=== PATIENT | female | born 1965 | race Asian ===

== ENCOUNTER 2018-06-07 22:55 | Inpatient (IN) ==
[2018-06-07 23:54] LABS: BASO# 0.03 X1000 (0.0-0.2); BASO% 0.2 % (0.0-0.8); EOS# 0.45 X1000 (0.0-0.7); EOS% 3.3 % (0.0-10.0); HEMATOCRIT 30.1 % (37.0-47.0); HEMOGLOBIN 9.7 g/dL (12.0-16.0); IMM GRAN# 0.04 X1000 (0.0-0.04); IMM GRAN% 0.3 % (0.0-0.5); LYMPH# 1.03 X1000 (1.2-3.4); LYMPH% 7.6 % (20.5-51.1); MCH 28.5 PG (27-31); MCHC 32.2 g/dL (33-37); MCV 88.5 FL (81-99); MONO# 0.88 X1000 (0.11-0.59); MONO% 6.5 % (1.7-9.3); MPV 7.8 FL (7.4-10.4); NEUT% 82.1 % (42.2-75.2); PLT 443 X1000 (130-400); RDW 12.9 % (11.5-14.5); WBC 13.53 X1000 (4.8-10.8)
--- NOTE | 2018-06-08 00:15 | PROVIDER DOCUMENTATION ---
This chart was entered by Diamante Lee Scribe, acting as scribe for Cristina Diaz MD. HPI-General Adult - General Source: patient - History of Present Illness -Gen Adult Nature of Presenting Problems: pt is 53/F presenting to ED w/ c/o urinary retention for the last 3 days, sts that she has gotten out some minimal amounts of urine, also has some dysuria. Pt has stage 4 gastric cancer, is receiving chemo. Denies any n/v. No other symptoms Location of Pain/Injury: reports: generalized (L flank pain) Quality of Pain: reports: aching Severity: reports: moderate Onset/Duration: reports: 3 days ago Timing: reports: still present Context/Activities at Onset: reports: none Modifying Factors: improves with: nothing Associated Symptoms: reports: genitourinary problems Similar Symptoms Previously?: No Recently seen or treated by another doctor?: No <Cristina Diaz - Last Filed: 06/08/18 00:15> <Perez Carreon - Last Filed: 06/08/18 02:48> - General Chief Complaint: Flank Pain Stated Complaint: DIFFICULTY URINATING, FLANK PAIN Time Seen by Provider: 06/07/18 23:06 Allergies/Adverse Reactions: Patient Allergies Allergy/AdvReac Type Severity Reaction Status Date / Time latex Allergy Unknown Verified 11/16/17 20:07 Home Medications: Home Medication List Medication Instructions Recorded Confirmed Last Taken Type Ondansetron [Zofran Odt] 4 mg PO PRN PRN 09/25/17 11/16/17 10/13/17 History Promethazine [Phenergan] 25 mg PO Q4H PRN PRN 09/25/17 11/16/17 2 Days Ago History ~10/11/17 Sucralfate 1 gm PO PRN PRN 09/25/17 11/16/17 10/17/17 07:00 History Scopolamine 1.5 mg/72 Hr Patch 1 each TD Q72H 10/13/17 11/17/17 11/16/17 History [Transderm-Scop] Venlafaxine HCl 25 mg PO QHS 10/13/17 11/16/17 10/16/17 20:00 History Acetaminophen 325 mg PO PRN PRN 10/14/17 11/16/17 Unknown History Alprazolam 0.25 mg PO PRN PRN 10/14/17 11/16/17 Unknown History Nutritional Supplement [Osmolite 50 hour PEG Q1-2H PRN MDD 50ml/hr 10/14/17 11/16/17 10/13/17 09:00 History 1.5 Mina] Sennosides/Docusate Sodium 100 mg PO HS 10/14/17 11/16/17 10/16/17 20:00 History [Docusate Sodium-Senna Tablet] Multivitamin with Minerals 5 ml JT DAILY #1 bottle 10/16/17 11/16/17 10/17/17 07:00 Rx [Eldertonic] Polyethylene Glycol 3350 [Miralax] 17 gm PO BID #20 powder, packet 10/16/17 11/16/17 10/17/17 07:00 Rx Metoclopramide HCl [Reglan] 5 mg PO BID #60 tab 10/22/17 11/16/17 Unknown Rx Oxycodone I.r. [Oxy Ir] 5 mg PO Q4H PRN #30 cap 10/22/17 11/16/17 Unknown Rx Review of Systems - Adult - REVIEW OF SYSTEMS - ADULT Constitutional: reports: no symptoms reported. denies: chills, fever Eyes: reports: no symptoms reported Ears, Nose, Mouth & Throat: reports: no symptoms reported Cardiovascular: reports: no symptoms reported. denies: chest pain Respiratory: denies: cough, shortness of breath, wheezing Gastrointestinal: reports: abdominal pain. denies: nausea, vomiting Genitourinary: reports: dysuria, urinary retention Musculoskeletal: reports: no symptoms reported Integumentary: reports: no symptoms reported Neurological: reports: no symptoms reported. denies: dizziness/vertigo, headache/migraines Endocrine: reports: no symptoms reported Hematologic/Lymphatic: reports: see HPI Allergic/Immunologic: reports: no symptoms reported <Cristina Diaz - Last Filed: 06/08/18 00:15> Past History - Adult - PAST MEDICAL HISTORY-ADULT Review of Records: reports: Old Records Reviewed, Nursing Assessment Review, Medications Reviewed, Social history reviewed & non-contributory. Major Childhood Illnesses: reports: denies history Cardiovascular: reports: denies history Respiratory: reports: denies history Gastrointestinal: reports: cancer (stage 4 with mets) Obstetrical/Gynecological: reports: denies history Genitourinary: reports: denies history Musculoskeletal: reports: denies history Neurological: reports: denies history Psychiatric: reports: denies history Endocrine/Immune: reports: denies history Other Conditions: reports: denies history - PRIOR SURGERIES/PROCEDURES Surgical/Procedure History: reports: other (j tube and port placed) - IMMUNIZATION STATUS Childhood Immunizations: See Nurse Assessment Flu Vaccine: See Nurse Assessment - FAMILY HISTORY Family History: reviewed, not pertinent - SOCIAL HISTORY Provider spent 3-5 mins advising pt. on dangers of tobacco.: Discussed manners to quit use, and f/u contacts for add'l counseling. Substance Use: none/never Alcohol Use Frequency: sober (former use) Living Situation: family <Cristina Diaz - Last Filed: 06/08/18 00:15> Physical Exam-General - PHYSICAL EXAM-ADULT Initial Vital Signs Reviewed: Yes - CONSTITUTIONAL General Appearance: alert, mild distress, other (sleepy, easy to arouse) - EYES Eyes: PERRL/EOMI, pink conjunctivae - HEAD, EARS, NOSE, MOUTH & THROAT HENMT: normocephalic/atraumatic, moist mucous membranes, normal ENT inspection - NECK Neck: non-tender, full range of motion, supple, normal inspection - RESPIRATORY Respiratory: lungs clear, normal breath sounds - CARDIOVASCULAR Cardiovascular: normal peripheral pulses, regular rate, rhythm, no edema - GASTROINTESTINAL (ABDOMEN) Abdominal Exam: normal bowel sounds, soft, other (Peg tube in the left side, yellow discharge from the peg tube site, slightly TTT.) - MUSCULOSKELETAL Back Exam: normal inspection, no CVA tenderness, no vertebral tenderness Extremity: normal range of motion, non-tender, normal gait, normal inspection - SKIN Integumentary: normal color, warm/dry - NEUROLOGIC Neurologic: grossly normal - PSYCHIATRIC Psych/Mental Status: normal thought content, normal thought process, oriented x 3 <Cristina Diaz - Last Filed: 06/08/18 00:15> Progress - PLAN OF CARE/RESULTS Progress/Plan/Lab Results: Vital Signs - 8 hr 06/07/18 22:58 Temperature 97.5 F L Pulse Rate 116 H Respiratory Rate 20 Blood Pressure 119/73 O2 Sat by Pulse Oximetry 94 L Laboratory Results - last 24 hr 06/07/18 23:40 WBC 13.53 H RBC 3.40 L Hgb 9.7 L Hct 30.1 L MCV 88.5 MCH 28.5 MCHC 32.2 L RDW Std Deviation 12.9 Plt Count 443 H MPV 7.8 Immature Gran % (Auto) 0.3 Neut % (Auto) 82.1 H Lymph % (Auto) 7.6 L Carlton % (Auto) 6.5 Eos % (Auto) 3.3 Baso % (Auto) 0.2 Immature Gran # (Auto) 0.04 Neut # (Auto) 11.10 H Lymph # (Auto) 1.03 L Carlton # (Auto) 0.88 H Eos # (Auto) 0.45 Baso # (Auto) 0.03 Orders Category Date Time Status CBC WITH ELECTRONIC DIFF [HEME] Stat Lab 06/07/18 23:40 Completed CMP [COMPREHENSIVE METABOLIC PANEL] [CHEM] Stat Lab 06/07/18 23:40 Received URINALYSIS W/POSS RFLX CULT [URINALYSIS] Stat Lab 06/07/18 23:20 Uncollected Result Diagrams: 06/07/18 23:40 - CHANGE OF SHIFT REPORT (ED Provider) 1 Report Given and Care Transferred to:: Dr. Carreon Time of Transfer: 00:16 Items Pending: Labs (Hx, PE and patient care discussed.) <Cristina Diaz - Last Filed: 06/08/18 00:15> - PLAN OF CARE/RESULTS Progress/Plan/Lab Results: Vital Signs - 8 hr 06/07/18 22:58 06/08/18 01:05 06/08/18 01:31 Temperature 97.5 F L Pulse Rate 116 H 105 H 103 H Respiratory Rate 20 24 17 Blood Pressure 119/73 131/88 122/81 O2 Sat by Pulse Oximetry 94 L 96 92 L 06/08/18 01:37 Temperature Pulse Rate 104 H Respiratory Rate 13 Blood Pressure 122/81 O2 Sat by Pulse Oximetry 93 L Laboratory Results - last 24 hr 06/07/18 06/07/18 06/07/18 23:40 23:40 23:40 WBC 13.53 H RBC 3.40 L Hgb 9.7 L Hct 30.1 L MCV 88.5 MCH 28.5 MCHC 32.2 L RDW Std Deviation 12.9 Plt Count 443 H MPV 7.8 Immature Gran % (Auto) 0.3 Neut % (Auto) 82.1 H Lymph % (Auto) 7.6 L Carlton % (Auto) 6.5 Eos % (Auto) 3.3 Baso % (Auto) 0.2 Immature Gran # (Auto) 0.04 Neut # (Auto) 11.10 H Lymph # (Auto) 1.03 L Carlton # (Auto) 0.88 H Eos # (Auto) 0.45 Baso # (Auto) 0.03 Sodium 135 L Potassium 4.3 Chloride 98 Carbon Dioxide 27 Anion Gap 10 BUN 8 Creatinine 0.3 L Estimated GFR/1.73 m2 > 60 BUN/Creatinine Ratio 27 Glucose 107 H Calculated Osmolality 269 Calcium 8.5 L Total Bilirubin 0.20 AST 13 ALT 11 Alkaline Phosphatase 72 Total Protein 6.3 Albumin 2.9 L Globulin 3.4 Albumin/Globulin Ratio 0.9 Amylase 109 Lipase 31 Plasma Lactate Urine Source Urine Color Urine Turbidity Urine pH Ur Specific [place] Urine Protein Ur Glucose (Stick) Ur Ketones (Stick) Urine Blood Urine Nitrite Urine Bilirubin Urobilinogen Dipstick Urine Leukocytes Urine WBC (Auto) Urine RBC (Auto) U Epithel Cells (Auto) Urine Bacteria (Auto) 06/08/18 06/08/18 00:56 00:56 WBC RBC Hgb Hct MCV MCH MCHC RDW Std Deviation Plt Count MPV Immature Gran % (Auto) Neut % (Auto) Lymph % (Auto) Carlton % (Auto) Eos % (Auto) Baso % (Auto) Immature Gran # (Auto) Neut # (Auto) Lymph # (Auto) Carlton # (Auto) Eos # (Auto) Baso # (Auto) Sodium Potassium Chloride Carbon Dioxide Anion Gap BUN Creatinine Estimated GFR/1.73 m2 BUN/Creatinine Ratio Glucose Calculated Osmolality Calcium Total Bilirubin AST ALT Alkaline Phosphatase Total Protein Albumin Globulin Albumin/Globulin Ratio Amylase Lipase Plasma Lactate 0.7 Urine Source CLEAN CATCH Urine Color YELLOW Urine Turbidity CLEAR Urine pH 6.0 Ur Specific [place] 1.017 Urine Protein TRACE A Ur Glucose (Stick) NEGATIVE Ur Ketones (Stick) NEGATIVE Urine Blood NEGATIVE Urine Nitrite NEGATIVE Urine Bilirubin NEGATIVE Urobilinogen Dipstick NORMAL Urine Leukocytes NEGATIVE Urine WBC (Auto) <10 Urine RBC (Auto) <10 U Epithel Cells (Auto) <10 Urine Bacteria (Auto) NEGATIVE Orders Category Date Time Status CHEST-PORTABLE [RAD] Stat Exams 06/08/18 00:[address] ABDOMEN/PELVIS W/O CONTRAST [CT] Stat Exams 06/08/18 00:56 Taken AMYLASE [CHEM] Stat Lab 06/08/18 00:11 Completed CBC WITH ELECTRONIC DIFF [HEME] Stat Lab 06/07/18 23:40 Completed CMP [COMPREHENSIVE METABOLIC PANEL] [CHEM] Stat Lab 06/07/18 23:40 Completed LACTATE, PLASMA [CHEM] Stat Lab 06/08/18 00:56 Completed LIPASE [CHEM] Stat Lab 06/08/18 00:11 Completed URINALYSIS W/POSS RFLX CULT [URINALYSIS] Stat Lab 06/08/18 00:56 Completed Morphine Med 06/08/18 00:57 Discontinued 4 mg IV NOW ONE Ondansetron [Zofran] Med 06/08/18 00:57 Discontinued 4 mg IM NOW ONE Result Diagrams: 06/07/18 23:40 06/07/18 23:40 <Perez Carreon - Last Filed: 06/08/18 02:48> Departure <Cristina Diaz - Last Filed: 06/08/18 00:15> - Departure Date of Disposition Decision: 06/08/18 Time of Disposition Decision: 02:33 Certified Medical Emergency: Emergent - Critical Care Note This patient required my direct & personal management of CC.: No <Perez Carreon - Last Filed: 06/08/18 02:48> - Departure DIAGNOSIS: Abdominal pain Disposition: ADMITTED INPATIENT 09 Condition: Stable Referrals and Follow-Ups: Jose Manuel Belcher MD [Primary Care Provider] - Attestation - Physician/ MCKENZIE Attestation Patient care was provided by Advanced Practice Provider:: No The physician spent face to face time with patient:: Yes Advanced Practice Provider documentation review:: Supervising physician onsite and consulted in the evaluation and care of this patient. The physician did have a face to face encounter with the patient. <Perez Carreon - Last Filed: 06/08/18 02:48> This chart was documented by the indicated scribe, (Diamante Lee, Scribe) and accurately reflects the services I performed and decisions made by Nolan viera Sarmed A., MD, as attested by the provider's signature.
[2018-06-08 00:29] LABS: AGAP 10; ALB/GLOB RATIO 0.9; ALBUMIN 2.9 g/dL (3.5-5.0); ALKALINE PHOSPHATASE 72 U/L (32-104); BUN 8 mg/dL (8-22); CALCIUM 8.5 mg/dL (8.8-10.2); CHLORIDE 98 mmol/L (98-107); COSMO 269; CREATININE 0.3 mg/dL (0.5-0.9); ESTIMATED GFR > 60; GLUCOSE 107 mg/dL (70-104); GOT 13 U/L (10-30); GPT 11 U/L (10-36); POTASSIUM 4.3 mmol/L (3.5-5.1); SODIUM 135 mmol/L (136-145); TCO2 27 mmol/L (25-35); TOTAL PROTEIN 6.3 g/dL (6.3-8.3)
[2018-06-08 00:41] LABS: AMYLASE 109 U/L (20-200); LIPASE 31 U/L (13-60)
[2018-06-08] MEDS ORDERED: ZOFRAN IM ONE (00:57)
[2018-06-08] MEDS ORDERED: MORPHINE IV ONE ×2 (00:57→03:01)
[2018-06-08 01:04] LABS: URINE SOURCE CLEAN CATCH
[2018-06-08 01:10] LABS: BILIRUBIN URINE NEGATIVE (NEGATIVE); BLOOD URINE NEGATIVE (NEGATIVE); COLOR YELLOW; GLUCOSE URINE NEGATIVE (NEGATIVE); KETONE URINE NEGATIVE (NEGATIVE); LEUKOCYTES URINE NEGATIVE (NEGATIVE); NITRITE URINE NEGATIVE (NEGATIVE); PROTEIN URINE TRACE mg/dL (NEGATIVE); SP GRAVITY URINE 1.017; TURBIDITY URINE CLEAR (CLEAR); UR EPITHELIAL CELLS <10 /HPF (<10); URINE BACTERIA NEGATIVE /HPF; URINE RBC <10 /HPF (<10); URINE WBC <10 /HPF (<10); UROBILINOGEN URINE NORMAL (NORMAL)
[2018-06-08] MEDS ORDERED: COMPAZINE IV ONE (03:01)
[2018-06-08] MEDS ORDERED: NS 1,000 ML IV ONE (03:53)
--- NOTE | 2018-06-08 05:05 | HISTORY AND PHYSICAL ---
PRIMARY CARE PHYSICIAN: Dr. New Manning. CANDY SEPARATOR ENROBING/ONCOLOGIST: Jose Manuel Belcher MD REASON FOR ADMISSION: A 3-day history of worsening intermittent left flank pain. HISTORY OF PRESENT ILLNESS: Ms. Francoise Pickett is an unfortunate 53-year-old [place] woman with stage IV cancer of the stomach. She is currently not receiving any chemotherapy or radiation therapy at this time. She comes in today complaining of 3-day history of decreased urinary output with intermittent left flank sharp pain not radiating anywhere. She said the pain is worse when she tries to urinate and says the pain occurs simultaneously with suprapubic pain. No overt dysuria or hematuria. She does admit today she started complaining of some fever and chills, and has vomited 3 times, yellowish emesis. No altered bowel movements. There has been increasing abdominal girth over the last 1 week, but there is no anterior abdominal pain, no shortness of breath or chest pain. The patient's daughter says that she has a lot of secretions and does not expectorate appropriately and does not protect her airway. No documented cough or shortness of breath. No chest pain. No polyuria or polydipsia. The patient has J tube in place because she has dysphagic and because of progressive tumor infiltration. No focal neurological complaints. REVIEW OF SYSTEMS: Twelve systems review was done. Positive findings per HPI. ALLERGIES: To latex. HOME MEDICATIONS: Have not been reconciled, but the family does report that she was taking several doses of morphine without any relief and that was one of the main reasons why she came in today. SOCIAL HISTORY: She is . Does not smoke, drink, or use illicit drugs. SURGICAL HISTORY: Other than the port and the aforementioned J tube, no surgical history. FAMILY HISTORY: Dad of liver cancer, but that is about it. DATA: White count 13,000, hemoglobin 9, hematocrit 30, platelets 443,000 with 82% neutrophils. Sodium is 135, glucose 107, calcium 8.5, albumin 2.9. Urinalysis shows trace protein. Chest film: Elevated right hemidiaphragm. There appears to be possible left lower lobe consolidation. CT scan of the abdomen showed the following findings: Increased ascites, upper abdominal adenopathy is unchanged, I think possible intraperitoneal metastasis, new mild hydronephrosis which is bilateral, possible acute pancreatitis, new dilation of the distal esophagus, probably suggestive of obstruction at the GE junction, left more than right pleural effusions increased. PHYSICAL EXAMINATION: VITAL SIGNS: Blood pressure is 127/85, heart rate is 102, temperature is 97.5 degrees, 92% on room air. GENERAL: This is a thin middle-aged [place] woman who is in moderate distress from her pain. She is slightly sedated from the pain medication recently administered. She will follow commands and open her eyes. She is alert and oriented to person, place, time, but very weak. She has a sad affect. HEENT: Head is normocephalic, atraumatic. Eyes, LATOSHA, EOMI. She is anicteric and mildly pale. ENT and oropharyngeal exam is only notable for dry oral mucosa. No central cyanosis. NECK: Supple. No JVD or carotid bruit. No thyromegaly. CHEST: Clear to auscultation. Diminished air entry in both lung romano. CARDIOVASCULAR: First and second heart sounds heard. No gallops, murmurs, rubs. Rhythm is regular. ABDOMEN: Distended, soft with a J-tube in the epigastrium. Note skin surrounding entry point is normal. There is tender epigastric pain, but no peritoneal signs. Bowel sounds are hypoactive. The patient has marked left CVA tenderness. RECTAL: Deferred at this time. No mass or organomegaly appreciated. EXTREMITIES: No edema, clubbing or peripheral cyanosis. Pulses distally have decreased volume. Rhythm is regular. NEUROLOGICAL: Grossly intact. No tremors, no myoclonus. SKIN: Intact. No breakdown, lesion, erythema. MUSCULOSKELETAL: Exam is grossly normal. ASSESSMENT: 1. Metastatic stage IV stomach cancer. 2. Aspiration pneumonia. 3. Dehydration. 4. Acute ascites. 5. Obstructive uropathy? Local tumor effect. PLAN: We will treat patient symptomatically with IV analgesia and opioids. Empiric antibiotics for possible aspiration pneumonia. Consult Urology for possible stenting versus nephrostomy tubes. Also order intravenous hydration. Consideration for nutrition supplements via J tube if patient can tolerate. The patient's prognosis does not seem to be looking good and will defer to Dr. Belcher to decide on if the patient will be a candidate for hospice and subsequently comfort care. The patient's tumor has progressed from when I saw her last saw her in October 2017. cc: Olakunle MD Jose Manuel Kiran MD Brian R. James, MD
[2018-06-08] MEDS ORDERED: TYLENOL PO PRN (05:56)
--- NOTE | 2018-06-08 06:02 | Diag Imaging Result Doc PS360 ---
EXAM: CHEST-PORTABLE HISTORY: cp TECHNIQUE: Chest single view COMPARISON: 11/16/2017 FINDINGS: Poor inspiratory effort. There is a small left pleural effusion with basilar atelectasis. There could be underlying infiltrates as well. No change in the right jugular portacatheter. No pneumothorax. No cardiomegaly. IMPRESSION: Development of a left pleural effusion with basilar atelectasis Electronically signed by Krish Newberry 06/08/2018 6:00 AM
[2018-06-08] MEDS: ZOSYN 3.375 GM in NS 50 ML IV SCH ×3 (06:14→18:26)
[2018-06-08] MEDS: MORPHINE IV PRN ×8 (06:16→22:48)
[2018-06-08] MEDS: POTASSIUM CHLORIDE 10 MEQ in NS 1,000 ML IV SCH ×2 (07:46→19:41)
--- NOTE | 2018-06-08 07:46 | Diag Imaging Result Doc PS360 ---
CT ABDOMEN/PELVIS W/O CONTRAST - 06/08/2018 INDICATION: abd pain COMPARISON: 10/18/2017 FINDINGS: There is a trace right and moderate left pleural effusion. Heart size is normal with no pericardial effusion. There are some scattered atelectasis in the lung bases. There is significant ascites increased from prior. There is severe constipation with significant dilation of most of the colon. There is a percutaneous jejunostomy tube in good position. The balloon is inflated. There is significant wall thickening of the gastric antrum similar to prior. There is probably retroperitoneal adenopathy. There is moderate bilateral hydronephrosis. No stones. Urinary bladder is very distended. Uterus and rectum are unremarkable. Bones are intact. IMPRESSION: 1. Very distended urinary bladder with bilateral hydronephrosis. Recommend Dougherty catheter placement and reevaluation with renal and bladder ultrasound. 2. Severe fecal impaction in diffuse dilation of the colon suggesting ileus. 3. Increasing ascites and pleural effusions. 4. Increasing retroperitoneal adenopathy. 5. Severe gastric wall thickening at the antrum. Some fluid dilation of the esophagus may represent gastric outlet obstruction or ileus. This exam was performed using automated exposure control, adjustment of mA or kV according to patient size, and/or use of iterative reconstruction technique Electronically signed by Pedro Mayes 06/08/2018 7:44 AM
--- NOTE | 2018-06-08 07:56 | CONSULTATION ---
DATE OF CONSULTATION: 06/08/2018 CHIEF COMPLAINT: Left flank pain. HISTORY OF PRESENT ILLNESS: Ms. Pickett is a 53-year-old [place] female with a stage IV cancer of her stomach. She is currently not on chemotherapy or radiation therapy. She complains of a 3-day history of decreased urinary output with intermittent left flank pain. She states the pain is worse when she tries to urinate. She also describes having suprapubic tenderness. Denies any hematuria or dysuria. The patient presented to the emergency room overnight where a CT of abdomen and pelvis are performed which showed bilateral mild hydronephrosis and a distended bladder with ascites and constipation present. Her and her family do describe occasional fevers and chills, and she has vomited several times. She states that her abdomen has increased in size recently. Denies any shortness of breath or chest pain. Urology was consulted for her bilateral hydronephrosis which is most prominent on the left side and her left flank pain. ALLERGIES: Latex. MEDICATIONS: 1. Venlafaxine 25 mg. 2. Xanax 0.25 mg. 3. Zofran ODT 4 mg. 4. Phenergan 25 mg p.o. 5. Sucralfate 1 g p.o. 6. MiraLAX 17 g. 7. Oxycodone 5 mg. PAST SURGICAL HISTORY: 1. Port placement 2. A AHSAN tube. PAST MEDICAL HISTORY: Stage IV gastric cancer. FAMILY HISTORY: Father of liver cancer. Denies any malignancies. SOCIAL HISTORY: Denies tobacco, alcohol, or illicit drug use. REVIEW OF SYSTEMS: Twelve-point review of systems performed with all pertinent positives and negative in HPI. PHYSICAL EXAMINATION: Vital Signs: Heart rate 89, blood pressure 119/77, oxygen saturation 92% on room air. General: Thin [place] female with moderate distress due to abdominal discomfort and pain. She follows commands and opens her eyes. She is alert and oriented to person, place, time, and situation. HEENT: Normocephalic, atraumatic. Pupils equal, round, and reactive to light. Mucous membranes moist. EOMI. Neck: Trachea midline. No palpable masses. Respiratory: Good respiratory effort without audible wheezing or rales. Cardiovascular: S1, S2 heart sounds. Regular rate and rhythm. Abdomen: Slightly distended, soft with tenderness to palpation. No evidence of any rebound or guarding. J tube in place. GENITOURINARY: The patient does have some suprapubic tenderness and distention. Evidence of left CVA tenderness. Extremities: Moving all extremities. Neurologic: Gross motor and sensory intact. Skin: No obvious skin breakdown or lesions. LABORATORY: White blood count 13.5, hemoglobin 9.7, hematocrit 30.4, and platelets 443,000. Sodium 135, potassium 4.3, chloride 98, bicarb 27, BUN 8, creatinine 0.3, and glucose 107. Urine with trace protein, negative blood and negative nitrite. Negative leukocytes. IMAGING: CT of abdomen and pelvis reviewed which showed mild bilateral hydronephrosis, more prominent on the left than the right, no obstructing lesions. The patient has a distended bladder, evidence of ascites and fecal constipation. J-tube in place. ASSESSMENT AND PLAN: Ms. Pickett is a 53-year-old with stage IV gastric cancer, who presents in consultation regarding flank pain, most prominent on the left side as well as CT scan evidence of the left hydronephrosis and a distended bladder. The patient has had decreased urinary output with a distended bladder. She has voided several times since being here, but these are all small volumes. I reviewed the imaging with her and her family. Discussed that due to the size of her bladder I think this is likely related to her hydronephrosis. I recommend placement of a urethral catheter to decompress her bladder, and likely would help with her bilateral hydronephrosis and her pain. If the patient has persistent hydronephrosis, we will consider cystoscopy and bilateral retrograde pyelograms and possible stent placement. Would plan to obtain a renal ultrasound in 2 days with Dougherty catheter in placement. The patient seems to have advanced cancer which could be leading to obstruction, but also has significant fecal constipation that could be leading to her urinary retention. Recommend aggressive bowel regiment. The patient's renal function is Cr of 0.3, and her urine looks to be relatively benign. We will continue to monitor. Please call with questions or concerns. cc: Royal Isbell MD [facility] CENTERHiren
[2018-06-08] MEDS: COMPAZINE IV PRN ×3 (10:18→20:37)
[2018-06-08] MEDS ORDERED: FLEET ENEMA PR ONE (11:09)
[2018-06-08] MEDS ORDERED: ANUSOL-HC CREAM PR SCH (11:30)
[2018-06-08] MEDS ORDERED: MIRALAX PO SCH (11:30)
[2018-06-08 12:26] LABS: BASO# 0.01 X1000 (0.0-0.2); BASO% 0.1 % (0.0-0.8); EOS# 0.37 X1000 (0.0-0.7); EOS% 3.1 % (0.0-10.0); HEMATOCRIT 29.4 % (37.0-47.0); HEMOGLOBIN 9.4 g/dL (12.0-16.0); IMM GRAN# 0.02 X1000 (0.0-0.04); IMM GRAN% 0.2 % (0.0-0.5); LYMPH% 9.3 % (20.5-51.1); MCH 28.8 PG (27-31); MCV 90.2 FL (81-99); MONO# 0.69 X1000 (0.11-0.59); MONO% 5.8 % (1.7-9.3); MPV 7.8 FL (7.4-10.4); NEUT% 81.5 % (42.2-75.2); PLT 428 X1000 (130-400); RBC 3.26 XMIL (4.2-5.4); RDW 12.9 % (11.5-14.5); WBC 11.89 X1000 (4.8-10.8)
[2018-06-08 12:46] LABS: AGAP 9; BUN 7 mg/dL (8-22); CALCIUM 8.1 mg/dL (8.8-10.2); CHLORIDE 102 mmol/L (98-107); COSMO 272; CREATININE 0.4 mg/dL (0.5-0.9); ESTIMATED GFR > 60; GLUCOSE 131 mg/dL (70-104); POTASSIUM 4.1 mmol/L (3.5-5.1); SODIUM 136 mmol/L (136-145); TCO2 25 mmol/L (25-35)
--- NOTE | 2018-06-08 13:07 | HEMO/ONC CONSULTATION ---
DATE: 06/08/2018 CHIEF COMPLAINT: We are being consulted for further management of patient's gastric cancer. HISTORY OF PRESENT ILLNESS: Ms. Pickett is a 53-year-old female that presented to the emergency department complaining of urinary retention, increased amounts of pain with urination, and increased amounts of abdominal pain. The patient denies any nausea, vomiting. No diarrhea. She does have some fever and chills. She has vomited about 3 different times. Abdominal pain continued to get worse. Ms. Pickett is well known to us at our clinic where she has been following for her metastatic gastric cancer. The patient was started on 5-FU based chemotherapy on 10/28/2017. The patient had an allergic reaction to oxaliplatin on 03/02/2018, changed to FOLFIRI only on 03/16/2018. Due to patient unable to tolerate chemotherapy, patient has not been treated with any chemotherapy since March of 2018. The patient was last in our office 06/03/2018. At that time, the patient had decided not to have further treatment measures, to keep comfort only. PAST MEDICAL HISTORY: Stage IV gastric cancer, GERD. PAST SURGICAL HISTORY: Port-A-Cath placement and J-tube placement. SOCIAL HISTORY: Previous smoker. No alcohol or substance abuse. FAMILY HISTORY: Positive for liver cancer. ALLERGIES: Allergic to latex. HOME MEDICATIONS: Venlafaxine, Xanax, Zofran, Phenergan, MiraLAX, oxycodone. REVIEW OF SYSTEMS: Negative other than as mentioned in the HPI. PHYSICAL EXAMINATION: Vital Signs: Temperature of 98.0 degrees, heart rate 97, respiratory rate 18, blood pressure 130/80, saturating 98% on room air. General: Patient is awake, lying in bed. No acute distress noted. HEENT: Anicteric. Pupils PERRLA. Mucous membranes appear to be dry. Neck: Supple. Trachea midline. Lymph Node Survey: No palpable lymphadenopathy. Chest: Bilateral breath sounds diminished bilaterally. Cardiovascular: S1, S2. Regular rate and rhythm. Abdomen: Soft, mildly distended. J-tube in place. Tender in the epigastric region. Bowel sounds are hypoactive. Skin: Warm, dry, and intact. Neurologic: Alert and oriented x3. No focal deficits noted. LABORATORY DATA: White blood cell count is 13.53, hemoglobin 9.7, hematocrit 30.1, platelets are 443,000. Potassium 4.3, BUN 8, creatinine 0.3. ASSESSMENT AND PLAN: 1. Stage IV gastric adenocarcinoma: The patient has decided no further treatment at this time, just to keep comfortable. We will continue with those wishes at this time. 2. Aspiration pneumonia: Continue recommendations per primary medical team. 3. Hydronephrosis: Continue recommendations per urology. 4. Dehydration: Continue hydration per primary medical team. Dictated by CANDACE Abel for Jose Manuel Belcher MD Patient seen and examined. As above. Patient known to us for metastatic gastric adenocarcinoma. We have stopped her chemotherapy about a month ago. She is on comfort measures, however so far the daughter and were able to take care of her without the help of hospice. Her condition has declined on a weekly basis. Family has voiced understanding. I have recommended that he get hospice on board. For constipation, we will give her relistor. Continue pain management. Jose Manuel Belcher M.D. cc: CANDACE Abel MD [facility]
--- NOTE | 2018-06-08 13:48 | GASTROENTEROLOGY CONSULTATION ---
DATE: 06/08/2018 PRIMARY CARE DOCTOR: Dr. Belcher. REASON FOR CONSULT: Abdominal distention. Back pain. Metastatic gastric cancer. HISTORY OF PRESENT ILLNESS: Ms. Pickett is 52-year-old female who was admitted on 06/07/2018 for symptoms of worsening left-sided flank pain. She has a history of stage IV stomach cancer. This was diagnosed with Dr. Mathis in 2018. She had a history of constipation. She had a colonoscopy done in 2018, which showed evidence of stercoral ulcer from impaction. During this admission CT scan showed evidence of : 1. Very distended urinary bladder with bilateral hydronephrosis. 2. Severe fecal impaction with diffuse dilation of the colon suggesting ileus. 3. Increasing ascites and pleural effusion. 4. Increasing retroperitoneal adenopathy. 5. Severe gastric wall thickening of the antrum. Some fluid dilation of the esophagus may represent gastric obstruction or ileus. 6. Gastric for further management. The patient has decreased p.o. intake. She moved her bowels once now. She has been fed through the J-tube since last year since the diagnosis. 7. Her main complaint is pain in the back she is getting IV narcotics for management. PAST MEDICAL HISTORY: 1. Stage IV stomach cancer. 2. Constipation. 3. Gastric obstruction. 4. Malnutrition. 5. Urinary retention. PAST SURGICAL HISTORY: 1. Esophagogastroduodenoscopy. 2. Colonoscopy. 3. J.-tube placement. ALLERGIES TO: Latex. SOCIAL HISTORY: She is . Her is very supportive, present at bedside. I also spoke to the daughter at bedside. No history of tobacco, alcohol or illicit drugs. FAMILY HISTORY: Father of liver cancer. MEDICATIONS IN THE HOSPITAL: 1. Fleets enema x1. 2. Tylenol. 3. Morphine. 4. IV normal saline at 125 mL/hour with potassium chloride 10 mg in there. 5. Compazine 10 mg IV every 4 hours. 6. Zosyn. 7. The patient is a clear liquid diet. REVIEW OF SYSTEMS: Denies any fevers, rigors, or chills. Does complain of pain in the back and decreased p.o. intake and constipation. PHYSICAL EXAMINATION: Vital Signs: Temperature 98 degrees, pulse of 85, respiratory rate of 17, blood pressure of 123/72 saturating 94% on room air. Body weight of 90 pounds body mass index of 17.6 kg. General: Thinly built, lying in bed, in no acute distress. HEENT: Pale conjunctiva, no icterus. Neck: Supple. Abdomen: Distended, J-tube in place in the left upper quadrant. There is erythema around the J-tube external bumper. There is also some pus on the gauze. Some soreness in the abdomen noted around the J-tube site. Likely localize feeding tube site infection. Extremities: No cyanosis, clubbing. : She has a Dougherty in place. Neurologic: She is alert, awake, oriented. LABS: Her hemoglobin and hematocrit is 9.4 and 29.4, white count of 11.89 platelet count of 428,000. Sodium of 135, potassium 4.3, chloride 98, bicarb 27, anion gap 10, BUN of 8 creatinine 0.3, glucose of 107 calcium is 8.5, total bilirubin is 0.2, AST 13, ALT 11, alkaline phosphatase 72, total protein is 6.3, albumin of 2.9. Amylase of 109, lipase of 31, lactate of 0.7. Urinalysis showing trace protein. CT scan findings described in HPI. IMPRESSION AND PLAN: 1. Metastatic stage IV stomach cancer being treated by Dr. Belcher. Her last chemotherapy was 1 month ago. Currently she is not on any further planned chemotherapy. Dr. Belcher has been consulted. Will follow up on his recommendations. 2. Gastric outlet obstruction likely secondary to gastric cancer which is likely causing some fluid in the esophagus. This poses her aspiration risk. We have suggested putting NG tube. I spoke to the patient's family at bedside. I have discussed the procedure of putting NG tube with them. They will discuss among themselves and let us know. I have also spoken to the nurse at bedside. 3. Aspiration pneumonia, possible. She has been on Zosyn per the primary care team. 4. Recurrent fecal impaction. We will start her on enemas twice daily for next three days and evaluate the response. Once abdomen is a little softer she may be able to use the J-tube for giving MiraLAX twice daily. 5. We will check a KUB in the morning. 6. Urinary retention and bilateral hydronephrosis. This is being monitored by the Urology team. 7. Anemia. Continue to watch for now. 8. Gastrointestinal prophylaxis. We will start with proton pump inhibitor b.i.d. 9. Pain control with IV morphine. We need to use the lowest amount of narcotics as tolerated to reduce the risk of worsening colon motility and gut motility. 10. Above plan discussed with the patient and family at bedside, the nursing staff and all questions answered. Please call us with any further questions. cc: Rafa Galo MD [facility]TDD
[2018-06-08] MEDS ORDERED: ATIVAN PEG PRN (15:21)
[2018-06-08] MEDS ORDERED: XANAX PEG PRN (15:21)
[2018-06-08] MEDS: CLINIMIX E 4.25%-5% SOLUTION 1,000 ML IV SCH (15:57)
[2018-06-08] MEDS: BACITRACIN OINTMENT TOP SCH ×2 (15:59→20:37)
[2018-06-08] MEDS: PROTONIX IV SCH (16:07)
[2018-06-08] MEDS: SODIUM CHLORIDE 0.9% INJ SCH (16:07)
--- NOTE | 2018-06-08 16:21 | PROGRESS NOTE ---
DATE: 06/08/2018 SUBJECTIVE: Patient has no major complaints. OBJECTIVE: Blood pressure is 123/72, heart rate of 85, respiratory rate of 12, temperature 98 degrees.Cardiovascular: Regular rate and rhythm. Pulmonary: Bilateral breath sounds clear to auscultation Gastrointestinal: Soft, nontender, nondistended. Bowel sounds are positive. Extremity: No clubbing or cyanosis. Lymphatic: No peripheral edema. Her abdomen is kind a rigid, I would say terse. AHSAN drain looks okay. DIAGNOSTIC STUDIES: White count 11, hemoglobin 9, hematocrit 29, platelets 428,000. Basic was normal. PROBLEM LIST: 1. Metastatic stage IV gastric cancer with ascites, possibly malignant, presenting with just decompensation. DR. Belcher is following. She has not had chemotherapy in about a month, and then she had progression while on chemotherapy. They are at this point deciding about what to do. Her cancer is progressing, and she is deteriorating from it, essentially. We will continue supportive care and follow. 2. Protein-calorie malnutrition in the setting of possible gastric outlet obstruction. We will continue to follow. 3. Aspiration pneumonia. We will continue empiric antibiotics and follow. She is on Zosyn and continue to follow. 4. Hydronephrosis per bladder outlet obstruction. Continue treatment and follow. DISPOSITION: I think hospice would be appropriate. We will work toward that goal. We will get a Palliative Care consult. cc: Cesar Morgan MD [facility]TD[facility]
[2018-06-08] MEDS: MIRALAX PO SCH ×3 (18:18→20:37)
[2018-06-08] MEDS ORDERED: RELISTOR SUBQ ONE (19:26)
[2018-06-09] MEDS: MORPHINE IV PRN ×11 (00:55→22:43)
[2018-06-09] MEDS: SODIUM CHLORIDE 0.9% INJ SCH ×2 (00:55→11:50)
[2018-06-09] MEDS: PROTONIX IV SCH ×2 (00:55→11:50)
[2018-06-09] MEDS: ZOSYN 3.375 GM in NS 50 ML IV SCH ×4 (00:55→18:15)
[2018-06-09] MEDS: MIRALAX PO SCH ×4 (00:57→20:34)
[2018-06-09] MEDS: CLINIMIX E 4.25%-5% SOLUTION 1,000 ML IV SCH ×3 (01:02→14:11)
[2018-06-09] MEDS: COMPAZINE IV PRN ×4 (03:09→20:51)
[2018-06-09 07:46] LABS: BASO# 0.01 X1000 (0.0-0.2); BASO% 0.1 % (0.0-0.8); EOS# 0.15 X1000 (0.0-0.7); EOS% 1.6 % (0.0-10.0); HEMATOCRIT 28.8 % (37.0-47.0); HEMOGLOBIN 9.1 g/dL (12.0-16.0); IMM GRAN# 0.05 X1000 (0.0-0.04); IMM GRAN% 0.5 % (0.0-0.5); LYMPH# 0.86 X1000 (1.2-3.4); LYMPH% 9.4 % (20.5-51.1); MCH 28.5 PG (27-31); MCHC 31.6 g/dL (33-37); MCV 90.3 FL (81-99); MONO# 0.71 X1000 (0.11-0.59); MONO% 7.8 % (1.7-9.3); NEUT# 7.33 X1000 (1.4-6.5); NEUT% 80.6 % (42.2-75.2); PLT 444 X1000 (130-400); RBC 3.19 XMIL (4.2-5.4); RDW 12.9 % (11.5-14.5); WBC 9.11 X1000 (4.8-10.8)
--- NOTE | 2018-06-09 07:52 | PROGRESS NOTE ---
DATE: 06/09/2018 SUBJECTIVE: No acute events overnight. The patient continues to have back that is more prominent in the left flank. Denies any dysuria or hematuria. Urethral catheter in place draining clear yellow urine with over 1.5L of output. The patient remains afebrile. Has had several bowel movements per her report. Received Fleet's enema, MiraLAX, and Relistor yesterday to try to help with her bowel function. The patient has daily bowel movements, per her daughter's report. OBJECTIVE: Vital Signs: Temperature 98.1 degrees, heart rate 90, blood pressure 130/76, oxygen saturation 94% on room air. General: Mild distress. Alert and oriented. Opens eyes to questions and can answer. Respiratory: Good respiratory effort without audible wheezing or rales. Abdomen: Slightly distended. No palpable masses. No suprapubic tenderness. Mild left CVA tenderness. Skin: No obvious skin lesions or rashes. J-tube in place in the abdomen. ASSESSMENT AND PLAN: Ms. Pickett is a 53-year-old with metastatic gastric cancer who presented yesterday to the hospital complaining of left flank pain. Had a CT scan performed which showed bilateral mild hydronephrosis, worse on the left than the right, as well as a very distended bladder. The patient has had decreased urinary output at home and was found to have significant fecal impaction. The patient has been having a vigorous bowel regiment and a Dougherty catheter inserted yesterday for decompression. The patient made a moderate amount of urine yesterday. She denies any suprapubic tenderness. She continues to have some left flank pain. Difficult to know whether this related to her malignancy versus the hydronephrosis seen on the CT scan. Recommended to the patient and her daughter to repeat a renal ultrasound tomorrow with the catheter in place to see if hydronephrosis improves. If it does not, would have to consider cystoscopy with bilateral retrograde pyelograms and possible ureteral stent placement. The patient did have some retroperitoneal lymphadenopathy as well as significant ascites on her imaging. However, with the distention of her bladder, decompression of the bladder likely would lead to improvement in hydronephrosis. If it does not, would consider ureteral stent placement. We will discuss this further with patient after her renal ultrasound. cc: MD ELO Erwin
--- NOTE | 2018-06-09 08:01 | Diag Imaging Result Doc PS360 ---
EXAM: KUB ABDOMEN HISTORY: evaluate for constipation or obstruction TECHNIQUE: Abdomen single view COMPARISON: 11/16/2017 FINDINGS: There is stool throughout the colon. The bowel loops are not dilated. No organomegaly. There is a catheter in the mid abdomen. No abnormal abdominal calcifications. IMPRESSION: Moderate constipation Electronically signed by Krish Newberry 06/09/2018 7:59 AM
[2018-06-09] MEDS ORDERED: DURAGESIC 25 MICROGM/HR PATCH TD SCH (08:15)
[2018-06-09 08:19] LABS: MAGNESIUM 2.1 mg/dL (1.5-2.7); PHOSPHORUS 3.8 mg/dL (2.7-4.5)
[2018-06-09 08:20] LABS: AGAP 10; BUN 12 mg/dL (8-22); CALCIUM 8.1 mg/dL (8.8-10.2); CHLORIDE 102 mmol/L (98-107); COSMO 275; CREATININE 0.3 mg/dL (0.5-0.9); ESTIMATED GFR > 60; GLUCOSE 154 mg/dL (70-104); POTASSIUM 3.8 mmol/L (3.5-5.1); SODIUM 136 mmol/L (136-145); TCO2 24 mmol/L (25-35)
--- NOTE | 2018-06-09 08:59 | PROVIDER PROGRESS NOTE ---
Progress Note SUBJECTIVE: No acute overnight events. Persistent nausea and vomiting. Patient and family refused NGT yesterday. She complains of left flank pain primarily. She has had a large bowel movement with fleet enema and small ones with relistor administration. I discussed with patient and family if the family was interested in EGD with palliative stent placement for gastric outlet obstruction would be helpful. At this time, they would like to think about it. OBJECTIVE: Last Vital Signs Temp 98.1 F 06/09/18 03:32 Pulse 90 06/09/18 03:32 Resp 18 06/08/18 19:23 BP 130/79 06/09/18 03:32 Pulse Ox 94 L 06/09/18 03:32 Height 5 ft Weight 90 lb GEN: awake, alert, NAD HEENT: anicteric, MMM NECK: supple, no JVD CARDIAC: RRR, no mumurs LUNGS: CTAB, no wheezing ABD: J-tube c/d/i, distended, hypoactive BS, mild diffuse TTP throughout, no rebound or guarding EXT: no cce NEURO: nonfocal, moving all extremities symmetrically LABS: 06/09/18 06/09/18 07:08 07:08 WBC 9.11 Hgb 9.1 L Plt Count 444 H Sodium 136 Potassium 3.8 Chloride 102 Carbon Dioxide 24 L BUN 12 D Creatinine 0.3 L A/P: Ms. Francoise Pickett is a 53 year old woman with metastatic gastric adenocarcinoma who presented with acute left flank pain found to have probable gastric outlet obstruction, fecal impaction, probable obstructive uropathy, and aspiration pneumonia. Her leukocytosis has improved with antibiotics and KUB shows improved constipation. No rectal bleeding or melena. Her anemia is stable. The family was at bedside. We discussed possible EGD to assess degree of gastric outlet obstruction and see if it were possible for palliative stent placement. They expressed that if she does not have long to live, then they would not want to put her through another procedure. I expressed agreement with that plan and should they want to reconsider, then we could address at a later date. Per Dr. Belcher, the patient and family would like comfort measures and a palliative care consult has been placed for consideration of hospice. #Left flank pain: suspect related to hydronephrosis vs. constipation - urology consulted, apprec assistance - continue bowel regimen and enemas as needed #Suspected GOO: family would like to hold off on EGD and palliative stent for now; can revisit in the future if it aligns with patient and family's GOC; nutrition through J-tube #Fecal impaction: continue miralax; enemas as needed #Metastatic gastric cancer: no further tx planned; analgesics, palliative care consult pending; Dr. Belcher following #Aspiration PNA: leukocytosis improving; on zosyn; defer to primary team #Hydronephrosis: urology following #Anemia: stable; no overt GI bleeding Will follow with you. Please call with questions
[2018-06-09] MEDS ORDERED: MIRALAX PEG SCH (09:00)
--- NOTE | 2018-06-09 09:05 | HEMO/ONC PROGRESS NOTE ---
DATE: 06/09/2018 SUBJECTIVE: Patient continues to have increased amount of left flank pain. The patient denies any fevers. The patient has had several bowel movements since receiving fleets enema, MiraLAX and Relistor yesterday. No other complaints at this time. OBJECTIVE: Vital Signs: Temperature 98.1 degrees, heart rate 90, respiratory rate 18, blood pressure 130/79, saturating 94% on room air. General: Patient is awake, lying in bed, no acute distress noted. HEENT: Anicteric. Pupils PERRLA. Mucous membranes dry. Cardiovascular: S1, S2. Regular rate and rhythm. Chest: Bilateral breath sounds diminished bilaterally. Abdomen: Soft nontender, slightly distended. Bowel sounds present in all 4 quadrants. Neurologic: Alert and oriented x3. No focal deficits noted. LABORATORY DATA: White blood cell count 9.1, hemoglobin 9.1, hematocrit 28.8, platelets are 444,000. Potassium 3.8, BUN 12, creatinine 0.3. ASSESSMENT AND PLAN: 1. Stage IV gastric adenocarcinoma: Continue with comfort measures at this time. Continue to monitor. 2. Aspiration pneumonia: Continue antibiotics as ordered. Continue recommendations per Primary Medical Team. 3. Hydronephrosis: Continue recommendations per Urology. 4. Dehydration. Continue hydration per Primary Medical Team. 5. Constipation. Continue with current bowel regimen. Continues to slowly improve. 6. Pain management: The patient continues to have increased amounts of pain. Add Fentanyl patch at this time. Continue other p.r.n. medications as well. Dictated by CANDACE Abel for Jose Manuel Belcher MD Patient seen and examined. As above. Continues to have pain. She has been started on Duragesic patch. Had a lengthy discussion with patients and then separately with the patient. Patient clearly states that she wants to be kept comfortable and does not want any aggressive measures. She is agreeable with EGD and stent placement if needed. I will discuss this with GI. I also discussed with Dr. Isbell and he agrees that no intervention is warranted at this time. We will hold off TPN. She will continue tube feeds as tolerated. Plan for hospice at discharge. Jose Manuel Belcehr M.D. [facility]
[2018-06-09] MEDS: BACITRACIN OINTMENT TOP SCH ×2 (10:03→20:53)
[2018-06-09] MEDS: LEXAPRO PEG SCH (10:40)
--- NOTE | 2018-06-09 13:19 | PROGRESS NOTE ---
DATE: 06/09/2018 SUBJECTIVE: The patient is complaining of back pain and has been unable to have a bowel movement despite multiple laxatives. OBJECTIVE: Vital Signs: Temperature 98.7 degrees, blood pressure 119/78, heart rate 85, respirations 18, and O2 saturation 94% on room air. Urine output 1.1 L. General: This is an elderly female lying in bed in no acute distress. Heart: S1, S2 normal. Regular rate and rhythm. Lungs: Equal air entry bilaterally. No crackles. No rales. Abdomen: Positive bowel sounds. Soft, nontender, and nondistended. Extremities: No edema. No cyanosis. Neurologic: The patient is lethargic, but will awaken when her name is called. LABORATORY: White blood cell count 9.1, hemoglobin 9.1, hematocrit 28, and platelets 444,000. Sodium 136, potassium 3.8, chloride 102, CO2 24, BUN 12, and creatinine 0.3. ASSESSMENT AND PLAN: 1. Metastatic gastric adenocarcinoma. The patient is being followed by GI and Oncology. They are scheduled to meet with palliative care today to discuss goals of care. 2. Fecal impaction with constipation. Continue on laxative therapy. According to the family, the patient has been refusing the laxatives. 3. Possible pneumonia. Continue with Zosyn and bronchodilator therapy. The patient is currently on room air. 4. Severe protein calorie malnutrition. The patient is on Clinimix at this time. 5. Gastrointestinal prophylaxis. Continue on Protonix. cc: Jyoti Darling MD [facility]TDD
[2018-06-10] MEDS: MORPHINE IV PRN ×6 (00:38→10:53)
[2018-06-10] MEDS: ZOSYN 3.375 GM in NS 50 ML IV SCH ×4 (01:02→18:12)
[2018-06-10] MEDS: COMPAZINE IV PRN ×2 (02:05→06:50)
[2018-06-10] MEDS: CLINIMIX E 4.25%-5% SOLUTION 1,000 ML IV SCH ×2 (02:17→13:30)
[2018-06-10] MEDS: SODIUM CHLORIDE 0.9% INJ SCH ×2 (06:50→18:12)
[2018-06-10] MEDS: PROTONIX IV SCH ×2 (06:50→18:12)
--- NOTE | 2018-06-10 07:14 | Diag Imaging Result Doc PS360 ---
EXAM: CHEST-PORTABLE 06/10/2018 HISTORY: pneumonia TECHNIQUE: AP portable at 0621 COMMENT: There is a left pleural effusion. There is atelectasis versus pneumonia in the left lower lobe and some atelectasis versus pneumonia at the right base as well. These findings have not changed appreciably since the previous examination of 06/08/2018. IMPRESSION: Bibasilar atelectasis versus pneumonia particularly in the left lower lobe. Left pleural effusion. Electronically signed by Kyaw Carlos 06/10/2018 7:12 AM
[2018-06-10 07:17] LABS: HEMATOCRIT 28.9 % (37.0-47.0); HEMOGLOBIN 9.3 g/dL (12.0-16.0); MCH 29.4 PG (27-31); MCHC 32.2 g/dL (33-37); MCV 91.5 FL (81-99); RBC 3.16 XMIL (4.2-5.4); RDW 12.9 % (11.5-14.5); WBC 11.02 X1000 (4.8-10.8)
[2018-06-10 08:01] LABS: AGAP 8; ALB/GLOB RATIO 0.8; ALBUMIN 2.4 g/dL (3.5-5.0); ALKALINE PHOSPHATASE 64 U/L (32-104); BUN 18 mg/dL (8-22); CALCIUM 7.8 mg/dL (8.8-10.2); CHLORIDE 100 mmol/L (98-107); COSMO 270; CREATININE 0.3 mg/dL (0.5-0.9); ESTIMATED GFR > 60; GLUCOSE 135 mg/dL (70-104); GOT 9 U/L (10-30); GPT 8 U/L (10-36); POTASSIUM 4.5 mmol/L (3.5-5.1); SODIUM 133 mmol/L (136-145); TCO2 25 mmol/L (25-35); TOTAL BILIRUBIN 0.16 mg/dL (0.20-1.00); TOTAL PROTEIN 5.6 g/dL (6.3-8.3)
--- NOTE | 2018-06-10 08:14 | PROGRESS NOTE ---
DATE: 06/10/2018 SUBJECTIVE: No acute events overnight. The patient continues to have significant pain and discomfort she describes in her bilateral back. Daughter states the patient was complaining earlier of pressure within her bladder and describes symptoms of likely bladder spasms. The patient's catheter has been draining well with clear yellow urine with approximately 1200 mL recorded over the past 24 hours. OBJECTIVE: Vitals: Temperature 98.8 degrees, heart rate 94, blood pressure 129/74, oxygenation 96% on room air. General: Mild distress, alert and oriented, but easily falls back asleep, but arousable. Lungs: Good respiratory effort without audible wheezing or rales. Abdomen: Soft, mild tenderness to palpation with distention. : No suprapubic tenderness. No CVA tenderness. Urethral catheter in place draining clear yellow urine. Skin: J-tube in place. LABORATORY: White blood cell count 11, hemoglobin 9.3, hematocrit 28.9, platelets 430,000. ASSESSMENT AND PLAN: Ms. Pickett is a 53-year-old with metastatic gastric cancer who presented in consultation regarding flank pain. CT scan was performed while in the emergency room that showed bilateral mild hydronephrosis, left greater than right, as well as extremely extended bladder. The patient's Dougherty catheter was inserted afterwards and had good drainage. The patient was having fecal impaction and since has been having regular bowel movements. The catheter seems to be draining well. She did have some symptoms of possible bladder spasms yesterday, which seems to have improved. I recommended obtaining a renal ultrasound today to assess for resolution of her hydronephrosis. If she continues to have hydronephrosis, would have to discuss placement of ureteral stents. The patient seems to have aggressive cancer and likely would be a candidate for hospice care. If patient continues to have significant hydronephrosis and associated pain, I would discuss with them undergoing cystoscopy and bilateral stent placement. If resolution of hydronephrosis is obtained, then can talk with family regarding removal of her Dougherty catheter. The patient was having significant retention likely related to underlying cancer as well as fecal impaction. Likely will leave catheter in for the time being to assist in drainage and decrease the discomfort for the patient. If the patient desires to have catheter removed, we could attempt this later today as well if continues to have spasms. cc: MD ELO Erwin
[2018-06-10] MEDS ORDERED: DURAGESIC 50 MICROGM/HR PATCH TD SCH (08:45)
--- NOTE | 2018-06-10 08:58 | PROVIDER PROGRESS NOTE ---
Progress Note SUBJECTIVE: No acute overnight events. She continues to have intractable nausea, vomiting, and flank pain. She expresses that her pain is not controlled and that she would like to go home. She is not interested in EGD. and daughter at bedside. OBJECTIVE: Last Vital Signs Temp 97.9 F 06/10/18 07:55 Pulse 93 H 06/10/18 07:55 Resp 18 06/10/18 04:00 BP 119/67 06/10/18 07:55 Pulse Ox 95 06/10/18 07:55 Height 5 ft Weight 90 lb GEN: awake, alert, chronic ill appearing HEENT: anicteric, MMM NECK: supple, no JVD CARDIAC: RRR, no mumurs LUNGS: CTAB, no wheezing ABD: J-tube c/d/i, distended, hypoactive BS, mild diffuse TTP throughout, no rebound or guarding EXT: no cce NEURO: nonfocal, moving all extremities symmetrically LABS: 06/10/18 06/10/18 06:48 06:48 WBC 11.02 H Hgb 9.3 L Plt Count 430 H Sodium 133 L Potassium 4.5 D Chloride 100 Carbon Dioxide 25 BUN 18 Creatinine 0.3 L Total Bilirubin 0.16 L AST 9 L ALT 8 L Alkaline Phosphatase 64 Total Protein 5.6 L Albumin 2.4 L A/P: Ms. Francoise Pickett is a 53 year old woman with metastatic gastric adenocarcinoma who presented with acute left flank pain found to have probable gastric outlet obstruction, fecal impaction, probable obstructive uropathy, and aspiration pneumonia. Her leukocytosis has improved with antibiotics and KUB from yesterday shows improved constipation. She has been having nonbloody bowel movements with miralax twice daily. Although patient's daughter and would like for Ms. Pickett to undergo palliative procedures, the patient has made it clear that she does not want to go through further suffering. The family would like to honor her decision and discussions with hospice are ongoing. She is requesting more pain control. I have spoke to Dr. Belcher about this plan of care and he is agreeable. #Left flank pain: suspect related to hydronephrosis vs. constipation - pain control, discussed with RN; patient reports better control of symptoms with dilaudid in the past - urology consulted, apprec assistance - continue bowel regimen #Suspected GOO: patient would like to hold off on EGD - ok to resume nutrition through J-tube - psychology intern consult placed #Nausea/vomiting: uncontrolled; stopped compazine; scheduled phenergan; zofran as needed; alternate between meds #Fecal impaction: continue miralax BID #Metastatic gastric cancer: no further tx planned; analgesics, palliative care consulted, appreciate assistance; Dr. Belcher following #Aspiration PNA: leukocytosis improving; on zosyn; defer to primary team #Hydronephrosis: urology following #Anemia: stable; from underlying malignancy; no overt GI bleeding Will sign off in light of patient's wishes for hospice and comfort measures. Please call with questions
[2018-06-10] MEDS: LEXAPRO PEG SCH (10:26)
[2018-06-10] MEDS: BACITRACIN OINTMENT TOP SCH (10:26)
[2018-06-10] MEDS: MIRALAX PO SCH (10:26)
[2018-06-10] MEDS: SODIUM CHLORIDE 0.9% INJ PRN (10:53)
[2018-06-10] MEDS: PHENERGAN IV SCH ×3 (10:53→18:04)
--- NOTE | 2018-06-10 11:12 | HEMO/ONC PROGRESS NOTE ---
DATE: 06/10/2018 SUBJECTIVE: The patient continues to have increased amounts of pain. OBJECTIVE: Vital Signs: Temperature 97.9 degrees, heart rate 93, respiratory rate 22, blood pressure 119/67, saturating 95% on room air. General: Patient is awake, lying in bed. Complained of increased amounts of abdominal pain. HEENT: Anicteric. Pupils PERRLA. Mucous membranes appear to be dry. Cardiovascular: S1, S2. Regular rhythm. Chest: Bilateral breath sounds diminished bilaterally. Abdomen: Soft, tender, but slightly distended. Bowel sounds present in all 4 quadrants. Neurologic: Alert and oriented x3. No focal deficits noted. LABORATORY DATA: White cell count 1.02, hemoglobin 9.8, hematocrit 28.9, platelets are 430. Potassium 4.5, BUN 18, creatinine 0.3, calcium 7.8. ASSESSMENT AND PLAN: 1. Stage IV gastric adenocarcinoma: Patient to be discharged with hospice to keep comfortable per patient's wishes. No need for further aggressive measures at this time. Plan of care discussed with Dr. Belcher. Dictated by CANDACE Abel for Jose Manuel Belcher MD Patient seen and examined. Had a lengthy discussion with the patient and her family. She simply wants to be kept comfortable. Discuss this further with Dr. Ca and Dr. Isbell. We will avoid any interventions. Increase Duragesic . Continue Dilaudid. Hospice consult. Jose Manuel Belcher M.D. [facility]
[2018-06-10] MEDS ORDERED: DILAUDID IV PRN (11:13)
[2018-06-10] MEDS: DILAUDID IV PRN ×6 (11:54→23:06)
--- NOTE | 2018-06-10 14:48 | PROGRESS NOTE ---
DATE: 06/10/2018 SUBJECTIVE: The patient is resting comfortably in bed. She states that she is still having a lot of pain from her flank region. She states that she no longer wants any invasive procedures and wants to be a DNR level 1. OBJECTIVE: Vital Signs: Temperature 97.9 degrees, blood pressure 119/67, heart rate 93, respirations 18, O2 saturation 95% on room air. General: This is a chronically ill-appearing, middle-aged female, lying in bed in no acute distress. Heart: S1, S2 normal. Tachycardic. Lungs: Equal air entry bilaterally. Diminished breath sounds at the bases. Abdomen: Positive bowel sounds. Soft, nontender, nondistended. Extremities: No edema, no cyanosis. Neurologic: The patient is alert and oriented x3. LABS: White blood cell count 11, hemoglobin 9.3, hematocrit 28, platelets 430. Sodium 133, potassium 4.5, chloride 100, CO2 25, BUN 18, creatinine 0.3. ASSESSMENT: 1. Metastatic gastric adenocarcinoma. 2. Constipation. 3. Aspiration pneumonia. 4. Severe protein calorie malnutrition. PLAN: The patient has stated that she does not want any further invasive interventions. She states that she wants her pain to be controlled. The patient is scheduled to undergo a renal ultrasound today. Hospice has been consulted as well. Oncologist is also working with the family to assist with goals of care. cc: Jyoti Darling MD
--- NOTE | 2018-06-10 15:13 | Diag Imaging Result Doc PS360 ---
EXAM: US RENAL 2 (RETROPER) COMPLETE 06/10/2018 HISTORY: Evaluation of hydronephrosis after Dougherty TECHNIQUE: Renal ultrasound COMMENT: There is ascites. There is a Dougherty catheter in the bladder which is completely empty. The right kidney is 10.3 x 5.2 x 4.2 cm with mild hydronephrosis. The resistive index is 0.65 which is within the normal range. The left kidney is 10 x 5 x 4.6 cm with mild dilatation of the collecting system and a resistive index of 0.68 which is again within normal range. No previous ultrasound examinations are available for comparison, however compared to the CT of the abdomen dated 06/08/2018 the degree of dilatation of the collecting systems is much less. IMPRESSION: Ascites. No evidence of obstruction. Residual dilatation of the collecting systems with normal resistive indices. Electronically signed by Kyaw Carlos 06/10/2018 3:11 PM
[2018-06-10] MEDS: ZOFRAN IV SCH ×2 (16:04→20:53)
[2018-06-11] MEDS: PHENERGAN IV SCH ×4 (00:03→18:08)
[2018-06-11] MEDS: DILAUDID IV PRN ×11 (01:12→22:15)
[2018-06-11] MEDS: ZOSYN 3.375 GM in NS 50 ML IV SCH ×4 (01:13→18:08)
[2018-06-11] MEDS: BACITRACIN OINTMENT TOP SCH ×3 (02:10→20:17)
[2018-06-11] MEDS: MIRALAX PO SCH ×3 (02:11→20:17)
[2018-06-11] MEDS: PROTONIX IV SCH ×2 (05:17→18:08)
--- NOTE | 2018-06-11 08:21 | PROGRESS NOTE ---
DATE: 06/11/2018 SUBJECTIVE: No acute events overnight. The patient appears to be feeling better today. Her ureteral catheters remain in place, draining clear-yellow urine. She states that she continues to have some abdominal and back pain, but this is likely better today than yesterday. Denies any nausea or vomiting. Patient with a renal ultrasound yesterday. OBJECTIVE: Vital Signs: Temperature 98.2, heart rate 85, blood pressure 122/69, oxygen saturation 96% on room air. General: No acute distress. Resting comfortably in bed. Alert and oriented today. Respiratory: Good respiratory effort without audible wheezing or rales. Abdomen: Soft. Mild distention. Mild tenderness to palpation. Mild CVA tenderness. : Suprapubic tenderness. Ureteral catheter in place with clear-yellow urine. Musculoskeletal: The patient is ambulating in the room during our conversation. ASSESSMENT AND PLAN: Ms. Pickett is a 53-year-old with history of metastatic gastric cancer, who presents in consultation regarding hydronephrosis and distended bladder on CT scan at the time of admission. The patient had a repeat renal ultrasound yesterday, which showed mild dilatation of her collecting systems bilaterally, but slightly less than on prior CT scan. Reviewing prior CT scan imaging from back in September, the patient had a distended bladder at that time, and likely is not emptying her bladder adequately. In talking with the family and patient today, they would like to have her catheter removed for comfort. I think this is reasonable. It was decided yesterday that the patient will be DO NOT RESUSCITATE and would go home on hospice. I told her if the patient is unable to urinate, then we would have to consider reinsertion of the catheter, but clinically she appears to be doing better today than previous evaluations. Reviewed with them the ultrasound report and the imaging findings. Recommended holding off on any intervention at this time, especially with the patient's decision to proceed with hospice care. Will continue to monitor. Please call with questions or concerns. cc: Royal Isbell MD MTDD
[2018-06-11] MEDS ORDERED: DURAGESIC 25 MICROGM/HR PATCH TD SCH (08:45)
[2018-06-11] MEDS: LEXAPRO PEG SCH (09:47)
--- NOTE | 2018-06-11 10:15 | HEMO/ONC PROGRESS NOTE ---
DATE: 06/11/2018 SUBJECTIVE: Patient continues to complain of increased amounts of pain. Pain medicine was just barely helping at this time. OBJECTIVE: Vital Signs: Temperature of 98.0 degrees, heart rate 85, respiratory rate 18, blood pressure 128/81, saturating 94% on room air. General: Patient is awake, lying in bed. No acute distress noted. HEENT: Anicteric. Pupils PERRLA. Mucous membranes appear to be moist. Cardiovascular: S1, S2. Regular rate and rhythm. Chest: Bilateral breath sounds clear to auscultation. Abdomen: Soft, tender. Slightly distended. Bowel sounds present in all 4 quadrants. Neurologic: Alert and oriented x3. No focal deficits noted. Laboratory Data: White cell count is 11.02, hemoglobin 9.3, hematocrit 28.9, platelets 430,000. Sodium 133, potassium 4.5, BUN 18, creatinine 0.3, calcium 7.8. ASSESSMENT AND PLAN: 1. Stage IV gastric adenocarcinoma: Once patient's pain is under control, patient will be discharged with hospice. No need for further aggressive measures at this time. 2. Pain management: If the patient continues to have increased amounts of pain, we will increase her fentanyl to a total of 75 mcg per hour. Continue to monitor closely. Continue as needed pain medications. Plan of care was discussed with Dr. Belcher. Dictated by CANDACE Abel for Jose Manuel Belcher MD [facility]
[2018-06-11] MEDS: CLINIMIX E 4.25%-5% SOLUTION 1,000 ML IV SCH (10:18)
[2018-06-11] MEDS: SODIUM CHLORIDE 0.9% INJ SCH ×2 (12:00→18:08)
[2018-06-11] MEDS: ZOFRAN IV SCH (14:36)
--- NOTE | 2018-06-11 16:30 | PROGRESS NOTE ---
DATE: 06/11/2018 SUBJECTIVE: The patient is complaining of generalized pain. Her family is present at the bedside. OBJECTIVE: Vital Signs: Temperature 98 degrees, blood pressure 130/76, heart rate 89, respirations 14, O2 saturation 95% on room air. General: This is a chronically ill-appearing elderly female, lying in bed in no acute distress. Heart: S1, S2 normal. Regular rate and rhythm. Lungs: Equal air entry bilaterally. No crackles. No rales. Abdomen: Positive bowel sounds. Soft, nontender, nondistended. Extremities: No edema, no cyanosis. Neurologic: The patient is alert and oriented x3. LABORATORIES: None. ASSESSMENT: 1. Metastatic gastric adenocarcinoma. 2. Aspiration pneumonia. 3. Chronic pain secondary to malignancy. PLAN: We will adjust the patient's pain medication in anticipation that she will be discharged with hospice services in the next 24 to 48 hours. cc: Jyoti Darling MD
[2018-06-11] MEDS: ROXANOL CONC. LIQUID PO PRN (23:12)
[2018-06-12] MEDS: DILAUDID IV PRN ×8 (00:14→15:23)
[2018-06-12] MEDS: KLONOPIN PEG PRN ×3 (00:19→11:24)
[2018-06-12] MEDS: ZOSYN 3.375 GM in NS 50 ML IV SCH ×3 (01:05→13:54)
[2018-06-12] MEDS: SODIUM CHLORIDE 0.9% INJ PRN ×2 (01:05→06:29)
[2018-06-12] MEDS: PHENERGAN IV SCH ×3 (01:05→13:55)
[2018-06-12] MEDS: CLINIMIX E 4.25%-5% SOLUTION 1,000 ML IV SCH (06:28)
[2018-06-12] MEDS: PROTONIX IV SCH (06:29)
[2018-06-12] MEDS: SODIUM CHLORIDE 0.9% INJ SCH (06:29)
--- NOTE | 2018-06-12 09:36 | HEMO/ONC PROGRESS NOTE ---
DATE: 06/12/2018 SUBJECTIVE: The patient continues to have increased amounts of pain. OBJECTIVE: Vital Signs: Temperature 97.6 degrees, heart rate 86, respiratory rate 16, blood pressure 113/79, saturation 94% on room air. General: The patient is awake, lying in bed, no acute distress noted. HEENT: Anicteric. Pupils PERRLA. Mucous membranes dry. Cardiovascular: S1, S2. Regular rate and rhythm. Chest: Bilateral breath sounds clear to auscultation. Abdomen: Soft, tender. Slightly distended. Bowel sounds present in all 4 quadrants. Neurologic: Alert and oriented x3. No focal deficits noted. ASSESSMENT AND PLAN: 1. Stage IV gastric adenocarcinoma: Once the patient's pain is under control, the patient will be discharged to hospice without any further aggressive measures at this time. Continue to monitor. 2. Pain management: The patient continues to require increased amounts of pain medicine. Continue to increase pain medicine as needed to get pain under control. Plan of care discussed with Dr. Belcher. Dictated by CANDACE Abel for Jose Manuel Belcher MD [facility]
[2018-06-12] MEDS: ROXANOL CONC. LIQUID PO PRN (10:02)
[2018-06-12 10:46] VITALS: BP 141/84
[2018-06-12] MEDS: LEXAPRO PEG SCH (11:15)
[2018-06-12] MEDS: MIRALAX PO SCH (11:17)
[2018-06-12] MEDS: BACITRACIN OINTMENT TOP SCH (11:17)
--- NOTE | 2018-06-19 03:40 | DISCHARGE SUMMARY ---
ADMISSION DATE: 06/07/2018 DISCHARGE DATE: 06/12/2018 FINAL DISCHARGE DIAGNOSES: 1. Metastatic gastric adenocarcinoma. 2. Aspiration pneumonia. 3. Chronic pain secondary to malignancy. 4. Severe protein calorie malnutrition. CONSULTATIONS: 1. Oncology consultation with Dr. Belcher. 2. Urology consultation with Dr. Isbell. 3. GI consultation with Dr. Mckay. HOSPITAL COURSE: Ms Pickett is a 53-year-old female with a history of known metastatic gastric adenocarcinoma who presented to the ER with a chief complaint of left flank pain. On admission, a CT of the abdomen and pelvis was done that revealed a very distended urinary bladder with bilateral hydronephrosis as well as increasing ascites, retroperitoneal adenopathy, and bilateral pleural effusions. The patient was admitted and Oncology, Urology and GI were consulted for further assistance with management. The patient was also noted to be severely constipated. A Dougherty catheter was placed to assist with bladder decompression. The patient was also started on IV pain management due to her excruciating pain. The patient was also noted to have aspiration pneumonia so antibiotic therapy was initiated as well. All treatment options were discussed with the patient and she stated that she was interested in any invasive treatments and wanted to focus on comfort. Palliative Care was also consulted for assistance with goals of care. After several discussions with the subspecialists, the patient decided to be sent home with hospice. Hospice was consulted and the patient was given prescriptions for pain management at home. The patient was ultimately discharged home with hospice on 06/12/2018. cc: Jyoti Darling MD
== END 2018-06-12 17:28 | disposition hospice, home (50) | DRG 947 ==
LOC: ED 22:55 → 3N 06-08 00:01 → SUATTDRO 06-08 06:06 → 3N 06-08 06:06
PROVIDERS: ATTEND Internal Medicine
CPT/HCPCS: 71010; 71045; 74000; 74018; 74176; 76770; 80048; 80053; 81001; 82150; 83605; 83690; 83735; 84100; 85025; 85027; 96361; 96365; 96372; 96375; 96376; 99285; A9270; C9113; J0780; J1170; J2270; J2405; J2543; J2550; J3480; J7030; S0164